=== PATIENT | female | born 1990 | race Two or more races ===

== ENCOUNTER 2021-01-28 21:41 | Emergency (ER) | payer MEDICAID, OTHER ==
[~2021-01-28] VITALS: Ht 170.2 cm; Wt 74.8 kg
[2021-01-28 23:20] VITALS: BP 136/84
[2021-01-29] MEDS ORDERED: ONDANSETRON ODT 4 MG TAB PO ONE (00:30)
[2021-01-29] MEDS ORDERED: KETOROLAC TROMETH 60MG/2ML VIAL IM ONE (00:45)
[2021-01-29] MEDS ORDERED: cefTRIAXone SOD 1,000 MG VL IM ONE (00:45)
[2021-01-29] MEDS ORDERED: TETANUS-DIPTH-ACEL PERTUSSIS 0.5ML SYR Tdap IM ONE (00:45)
[2021-01-29] MEDS ORDERED: BACITRACIN TOP OINT 1 UD PKG TOP ONE (01:15)
[2021-01-29] MEDS ORDERED: BACITRACIN INJ 50000 UNIT VIAL TOP ONE (01:15)
== END 2021-01-29 01:25 | disposition home or self-care (01) ==
LOC: ER 21:41
DX: S51.812A Laceration without foreign body of left forearm, initial encounter (principal); S33.8XXA Sprain of other parts of lumbar spine and pelvis, initial encounter; F17.210 Nicotine dependence, cigarettes, uncomplicated; W01.0XXA Fall on same level from slipping, tripping and stumbling without subsequent striking against object, initial encounter; Y93.89 Activity, other specified; Y92.89 Other specified places as the place of occurrence of the external cause; Y99.8 Other external cause status
CPT/HCPCS: 12001; 72100; 72220; 90471; 90715; 96372; 99284; J0696; J1885; Q0162